=== PATIENT | female | born 1980 | race Hispanic/Latino ===

== ENCOUNTER 2017-02-02 19:27 | Emergency (ER) | payer OTHER ==
[2017-02-02 19:31] VITALS: BMI 25.0
--- NOTE | 2017-02-02 19:32 | ED PDOC ---
Arrival/HPI - General Time Seen by Provider: 02/02/17 19:28 Historian: Patient - History of Present Illness Narrative History of Present Illness (Text): 02/02/17 19:29 36 y/o female, no significant pmh, nkda, last tetanus under 2 years ago, c/o rt. hand thumb laceration x 2 hours. Pt. stated that she was washing the dishes which it broked, sustained the laceration, no dizziness, no night sweat, no palpitation, no headache, no other medical or psychological complaints. Past Medical History - Provider Review Nursing Documentation Reviewed: Yes - Infectious Disease Hx of Infectious Diseases: None - Tetanus Immunization Tetanus Immunization: Up to Date - Past Medical History Past Medical History: No Previous - Cardiac Hx Cardiac Disorders: Yes Hx Congestive Heart Failure: Yes (evaluated 05-04-15) - Pulmonary Hx Respiratory Disorders: No - Neurological Hx Neurological Disorder: No - HEENT Hx HEENT Disorder: No - Renal Hx Renal Disorder: No - Endocrine/Metabolic Hx Endocrine Disorders: No - Hematological/Oncological Hx Blood Disorders: No Hx Blood Transfusions: No Hx Blood Transfusion Reaction: No - Integumentary Hx Dermatological Disorder: No - Musculoskeletal/Rheumatological Hx Musculoskeletal Disorders: No Hx Falls: No - Gastrointestinal Hx Gastrointestinal Disorders: Yes Hx Gall Bladder Disease: Yes Hx Gastrointestinal Ulcer: Yes - Genitourinary/Gynecological Hx Genitourinary Disorders: No - Psychiatric Hx Psychophysiologic Disorder: No Hx Depression: No Hx Substance Use: No - Past Surgical History Past Surgical History: No Previous - Surgical History Hx Section: Yes Hx Cholecystectomy: Yes - Anesthesia Hx Anesthesia: Yes Hx Anesthesia Reactions: No Hx Malignant Hyperthermia: No - Suicidal Assessment Feels Threatened In Home Enviroment: No Family/Social History - Physician Review Nursing Documentation Reviewed: Yes Family/Social History: Unknown Family HX Smoking Status: Light Smoker < 10 Cigarettes Daily Hx Alcohol Use: No Hx Substance Use: No Hx Substance Use Treatment: No Allergies/Home Meds Allergies/Adverse Reactions: Allergies No Known Allergies Allergy (Verified 02/02/17 19:31) Review of Systems - Review of Systems Constitutional: absent: Fatigue, Fevers Eyes: absent: Vision Changes ENT: absent: Hearing Changes Respiratory: absent: SOB, Cough, Sputum Cardiovascular: absent: Chest Pain Gastrointestinal: absent: Abdominal Pain, Nausea, Vomiting Skin: Laceration. absent: Rash, Pruritis, Skin Lesions, Abscess, Ulcer, Cellulitis Neurological: absent: Headache, Dizziness, Focal Weakness, Gait Changes Psychiatric: absent: Anxiety, Depression, Suicidal Ideation Physical Exam Vital Signs Reviewed: Yes Vital Signs Temp Pulse Resp BP Pulse Ox 02/02/17 19:34 97.4 F L 63 16 110/66 98 Temperature: Afebrile Blood Pressure: Normal Pulse: Regular Respiratory Rate: Normal Appearance: Positive for: Well-Appearing, Non-Toxic, Comfortable Pain Distress: Mild Mental Status: Positive for: Alert and Oriented X 3 - Systems Exam Head: Present: Atraumatic, Normocephalic Pupils: Present: PERRL Extroacular Muscles: Present: EOMI Conjunctiva: Present: Normal Mouth: Present: Moist Mucous Membranes Neck: Present: Normal Range of Motion Respiratory/Chest: Present: Clear to Auscultation, Good Air Exchange. No: Respiratory Distress, Accessory Muscle Use Cardiovascular: Present: Regular Rate and Rhythm, Normal S1, S2. No: Murmurs Abdomen: Present: Normal Bowel Sounds. No: Tenderness, Distention, Peritoneal Signs Back: Present: Normal Inspection Upper Extremity: Present: Normal Inspection, Other (Rt. hand: 1st digit dorsum aspect approx. 2.5cm laceration skin flap noted, FROM without limitation, sensation intact, motor 5/5, +radial pulse, capillary refill< 2 seconds, neurovascular intact. ). No: Cyanosis, Edema Lower Extremity: Present: Normal Inspection. No: Edema Neurological: Present: GCS=15, CN II-XII Intact, Speech Normal Skin: Present: Warm, Dry, Normal Color. No: Rashes Psychiatric: Present: Alert, Oriented x 3, Normal Insight, Normal Concentration Medical Decision Making ED Course and Treatment: 02/02/17 19:30 -xray -sensation intact, motor 5/5, wound irrigate with normal saline 1000cc, clean with betadine, sterile procedure, 1% lidocaine digital block with 2cc on the injured thumb, 5-0 nylon made 7 sutures, hemostasis obtained, bacitracin applied , gauze dressing, sensation intact, motor 5/5. -Discharge home with keflex, bacitracin ointment, motrin, keep the dressing dry and clean for 2 days, clean with soap and water twice daily, sutures need to be removed by day 11-12, follow up with your own pmd and hand specialist within 2 days, return to the ER for any new or worsening sign or symptoms. - RAD Interpretation Radiology Orders: 02/02/17 19:32 HAND RIGHT 3 VIEWS [RAD] Stat normal rt. hand radiograph Wellness Specialist: Radiologist - Medication Orders Current Medication Orders: Discontinued Medications Alprazolam (Xanax) Confirm Administered Dose 0.25 mg .ROUTE .STK-MED ONE Stop: 02/02/17 20:26 Last Admin: 02/02/17 20:27 Dose: 0.25 mg - PA / HEEL LINING PASTER / Resident Statement MD/DO has reviewed & agrees with the documentation as recorded. Disposition/Present on Arrival - Present on Arrival Any Indicators Present on Arrival: No History of DVT/PE: No History of Uncontrolled Diabetes: No Urinary Catheter: No History of Decub. Ulcer: No History Surgical Site Infection Following: None - Disposition Have Diagnosis and Disposition been Completed?: Yes Diagnosis: Hand laceration Disposition: HOME/ ROUTINE Disposition Time: 19:50 Patient Plan: Discharge Condition: GOOD Additional Instructions: Discharge home with keflex, bacitracin ointment, take tylenol for pain as needed , keep the dressing dry and clean for 2 days, clean with soap and water twice daily, sutures need to be removed by day 11-12, follow up with your own pmd and hand specialist within 2 days, return to the ER for any new or worsening sign or symptoms. Prescriptions: Bacitracin OINT 1 applic TP BID #15 g Cephalexin [cephalexin] 500 mg PO TID #21 cap Referrals: Jeremy Ruelas MD [Staff Provider] - Follow up with [place] [facility] [place] [facility] [place] - Follow up with primary Forms: WORK NOTE
[2017-02-02 19:35] VITALS: BP 110/66; PULSE 63; RESP 16; TEMP 97.4; O2SAT 98
--- NOTE | 2017-02-03 10:58 | RAD ---
PROCEDURE: Right Hand Radiographs. HISTORY: 1st MCPJ laceration by glass COMPARISON: None. FINDINGS: BONES: Normal. No fracture. JOINTS: Normal. No osteoarthritic changes. SOFT TISSUES: Normal. OTHER FINDINGS: None. IMPRESSION: Normal right hand radiographs.
== END 2017-02-02 20:54 | disposition home or self-care (01) ==
LOC: ED 19:27
DX: S61.011A Laceration without foreign body of right thumb without damage to nail, initial encounter (principal); W45.8XXA Other foreign body or object entering through skin, initial encounter; Y93.G1 Activity, food preparation and clean up; Y92.89 Other specified places as the place of occurrence of the external cause

== ENCOUNTER 2017-02-14 13:54 | Emergency (ER) | payer OTHER ==
[2017-02-14 13:55] VITALS: BMI 25.0
--- NOTE | 2017-02-14 14:11 | ED PDOC ---
Arrival/HPI - General Time Seen by Provider: 02/14/17 14:09 Historian: Patient - History of Present Illness Narrative History of Present Illness (Text): 02/14/17 14:10 36 y/o female, nkda, here for the suture removal from the rt. thumb s/p sutured 12 days ago. Wound has been healing well and dry, no fever or chills, no numbness or tingling. Past Medical History - Infectious Disease Hx of Infectious Diseases: None - Tetanus Immunization Tetanus Immunization: Up to Date - Past Medical History Past Medical History: No Previous - Cardiac Hx Cardiac Disorders: Yes Hx Congestive Heart Failure: Yes (evaluated 05-04-15) - Pulmonary Hx Respiratory Disorders: No - Neurological Hx Neurological Disorder: No - HEENT Hx HEENT Disorder: No - Renal Hx Renal Disorder: No - Endocrine/Metabolic Hx Endocrine Disorders: No - Hematological/Oncological Hx Blood Disorders: No Hx Blood Transfusions: No Hx Blood Transfusion Reaction: No - Integumentary Hx Dermatological Disorder: No - Musculoskeletal/Rheumatological Hx Musculoskeletal Disorders: No Hx Falls: No - Gastrointestinal Hx Gastrointestinal Disorders: Yes Hx Gall Bladder Disease: Yes Hx Gastrointestinal Ulcer: Yes - Genitourinary/Gynecological Hx Genitourinary Disorders: No - Psychiatric Hx Psychophysiologic Disorder: No Hx Depression: No Hx Substance Use: No - Past Surgical History Past Surgical History: No Previous - Surgical History Hx Section: Yes Hx Cholecystectomy: Yes - Anesthesia Hx Anesthesia: Yes Hx Anesthesia Reactions: No Hx Malignant Hyperthermia: No - Suicidal Assessment Feels Threatened In Home Enviroment: No Family/Social History Smoking Status: Light Smoker < 10 Cigarettes Daily Hx Alcohol Use: No Hx Substance Use: No Hx Substance Use Treatment: No Allergies/Home Meds Allergies/Adverse Reactions: Allergies No Known Allergies Allergy (Verified 02/02/17 19:31) Disposition/Present on Arrival - Present on Arrival History of DVT/PE: No History of Uncontrolled Diabetes: No Urinary Catheter: No History Surgical Site Infection Following: None - Disposition
== END 2017-02-14 14:48 | disposition left against medical advice (07) ==
LOC: ED 13:54
DX: Z02.89 Encounter for other administrative examinations (principal); Z48.02 Encounter for removal of sutures

== ENCOUNTER 2017-02-16 13:29 | Emergency (ER) | payer OTHER ==
[2017-02-16 13:41] VITALS: RESP 16; TEMP 98; BMI 22.5
--- NOTE | 2017-02-16 14:36 | ED PDOC ---
Arrival/HPI - General Historian: Patient - History of Present Illness Time/Duration: Other (14 days ago) Symptom Onset: Sudden Symptom Course: Improving Quality: Other (no pain) - General Chief Complaint: Suture/Staple Removal Time Seen by Provider: 02/16/17 14:26 - History of Present Illness Narrative History of Present Illness (Text): 02/16/17 36-year-old female presents today for suture removal to the right thumb. Patient states 14 days ago she sustained a laceration to the right thumb and had 7 sutures placed. Patient denies numbness weakness or tingling in the extremity. Patient denies decreased range of motion of the thumb. She presents today only for suture removal. No medications have been taken at home. Patient denies any complaints. (Linda Wilhelm) Past Medical History - Provider Review Nursing Documentation Reviewed: Yes - Travel History Have you recently traveled outside [place] w/in the past 3 mons?: No - Infectious Disease Hx of Infectious Diseases: None - Tetanus Immunization Tetanus Immunization: Up to Date - Past Medical History Past Medical History: No Previous - Cardiac Hx Cardiac Disorders: Yes Hx Congestive Heart Failure: Yes (evaluated 05-04-15) - Pulmonary Hx Respiratory Disorders: No - Neurological Hx Neurological Disorder: No - HEENT Hx HEENT Disorder: No - Renal Hx Renal Disorder: No - Endocrine/Metabolic Hx Endocrine Disorders: No - Hematological/Oncological Hx Blood Disorders: No Hx Blood Transfusions: No Hx Blood Transfusion Reaction: No - Integumentary Hx Dermatological Disorder: No - Musculoskeletal/Rheumatological Hx Musculoskeletal Disorders: No Hx Falls: No - Gastrointestinal Hx Gastrointestinal Disorders: Yes Hx Gall Bladder Disease: Yes Hx Gastrointestinal Ulcer: Yes - Genitourinary/Gynecological Hx Genitourinary Disorders: No - Psychiatric Hx Psychophysiologic Disorder: No Hx Depression: No Hx Substance Use: No - Past Surgical History Past Surgical History: No Previous - Surgical History Hx Section: Yes Hx Cholecystectomy: Yes - Anesthesia Hx Anesthesia: Yes Hx Anesthesia Reactions: No Hx Malignant Hyperthermia: No - Suicidal Assessment Feels Threatened In Home Enviroment: No Family/Social History - Physician Review Nursing Documentation Reviewed: Yes Family/Social History: Unknown Family HX Smoking Status: Light Smoker < 10 Cigarettes Daily Hx Alcohol Use: No Hx Substance Use: No Hx Substance Use Treatment: No Allergies/Home Meds Allergies/Adverse Reactions: Allergies No Known Allergies Allergy (Verified 02/02/17 19:31) Review of Systems - Review of Systems Constitutional: absent: Fatigue, Fevers Respiratory: absent: SOB, Cough Cardiovascular: absent: Chest Pain Gastrointestinal: absent: Abdominal Pain Musculoskeletal: absent: Arthralgias, Back Pain Skin: Laceration Neurological: absent: Headache Physical Exam Vital Signs Reviewed: Yes Temperature: Afebrile Blood Pressure: Normal Pulse: Regular Respiratory Rate: Normal Appearance: Positive for: Well-Appearing, Non-Toxic, Comfortable Pain Distress: None Mental Status: Positive for: Alert and Oriented X 3 - Systems Exam Head: Present: Atraumatic Respiratory/Chest: Present: Clear to Auscultation Cardiovascular: Present: Regular Rate and Rhythm Upper Extremity: Present: Normal ROM, NORMAL PULSES, Neurovascularly Intact, Capillary Refill < 2s, Other (right thumb; there are [address] over the dorsal aspect of the right thumb over the MCP. no erythema; no edema, no ecchymosis; full rom of thumb. ). No: Tenderness, Swelling, Erythema Vital Signs Temp Pulse Resp BP Pulse Ox 02/16/17 14:56 83 16 130/77 99 02/16/17 13:39 98.0 F 96 H 16 133/79 98 Medical Decision Making ED Course and Treatment: I was available for consultation during PA evaluation. The chart was reviewed by me, and I agree with disposition. The documented history was done by the physician dental ceramist assistant. The documented physical exam was done by the physician dental ceramist assistant. The documented procedures were done by the physician dental ceramist assistant. (David Vick) Patient is nontoxic well-appearing in no distress. Vital signs are stable. suture removal: 7 sutures removed wound is not fully healed and laceration is over MCP. will add finger splint for immoblization. Wound healing well without signs of infection, steri strips applied; finger splint applied. I advised the patient to keep the wound clean and dry apply bacitracin twice daily and return if symptoms worsen persist or if new symptoms develop Impression: Wound check, suture removal. Keep the wound clean and dry Use finger splint. Apply bacitracin twice daily Follow up with primary care physician within the next 2 days Return immediately if symptoms worsen persist or if new symptoms develop (Linda Wilhelm) Disposition/Present on Arrival - Present on Arrival Any Indicators Present on Arrival: No History of DVT/PE: No History of Uncontrolled Diabetes: No Urinary Catheter: No History of Decub. Ulcer: No History Surgical Site Infection Following: None - Disposition Have Diagnosis and Disposition been Completed?: Yes Disposition Time: 14:36 Patient Plan: Discharge - Disposition Diagnosis: Visit for suture removal Disposition: HOME/ ROUTINE Condition: GOOD Discharge Instructions (ExitCare): Laceration (ED) Additional Instructions: Keep the wound clean and dry Apply bacitracin twice daily Follow up with primary care physician within the next 2 days Return immediately if symptoms worsen persist or if new symptoms develop Referrals: Sigifredo Kirby MD [Staff Provider] - Follow up with primary [facility] at [facility] [place]Outside] - Follow up with primary
[2017-02-16 14:58] VITALS: BP 130/77; PULSE 83; O2SAT 99
== END 2017-02-16 14:56 | disposition home or self-care (01) ==
LOC: ED 13:29
DX: Z48.02 Encounter for removal of sutures (principal)

== ENCOUNTER 2018-11-27 10:40 | Outpatient (CLI) | payer OTHER | END 2018-11-27 10:41 | disposition home or self-care (01) | LOC: RAD 10:40 ==